=== PATIENT | male | born 1950 | race Caucasian/White ===

== ENCOUNTER → 2019-05-14 10:07 | Outpatient (CLI) | payer MEDICARE, MEDICAID, SELFPAY ==
--- NOTE | 2019-05-14 | DI.NM.S_ITS ---
PROCEDURE: NM BONE SCAN WHOLE BODY RADIOPHARMACEUTICAL: 20.1 mCi Tc-99m MDP IV. INDICATIONS: PROSTATE CANCER TECHNIQUE: Delayed whole-body scintigrams were obtained approximately 3-4 hours after intravenous injection of radiotracer. Anterior and posterior views were acquired from vertex to feet. Additional left and right oblique views of the pelvis and chest were obtained. COMPARISON: [facility], CR, XR TIBIA FIBULA RIGHT, 02/21/2018, 15:19. FINDINGS: Focal elevated isotope uptake is seen at the acromioclavicular joints bilaterally greater on the left than the right. 2 adjacent rib foci of elevated isotope uptake are seen anteriorly at the mid chest level fat the left, anteriorly on the fifth rib and slightly more posteriorly on the sixth rib. By appearance this likely is from trauma. Prior [id number] amputation at the right lower extremity. There is mild elevated isotope uptake within the distal femur, and this is considered most likely secondary to weightbearing in that area but please correlate clinically for whether there are any signs and symptoms of the distal femoral infection on the right. IMPRESSION: Arthritic change and mild focal trauma to the left anterior mid ribs. Mild elevated isotope uptake involving the femur in this patient who has undergone prior right [id number] amputation at the right femur. Please correlate for whether mild infection could be present but by appearance this is considered most likely reactive change to weightbearing. Dictated by: Yoseph Mccormick M.D. on 05/14/2019 at 15:06 Approved by: Yoseph Mccormick M.D. on 05/14/2019 at 15:15
== END ==
PROVIDERS: Visit Provider Physician Assistant
DX: C61 Malignant neoplasm of prostate (principal); S29.9XXA Unspecified injury of thorax, initial encounter; Z89.611 Acquired absence of right leg above knee
CPT/HCPCS: 78306; A9503

== ENCOUNTER → 2019-06-20 14:24 | Outpatient (CLI) | payer MEDICARE, SELFPAY ==
[2019-06-20 15:12] LABS: BUN Creatinine Ratio 27.1 (6-22); Blood Urea Nitrogen 19 mg/dL (9-20); Estimated Glomerular Filt Rate > 60.0 mL/min (>60)
== END ==
PROVIDERS: Visit Provider Urology
DX: C61 Malignant neoplasm of prostate (principal)
CPT/HCPCS: 36415; 82565; 84520

== ENCOUNTER → 2019-06-20 14:46 | Outpatient (CLI) | payer MEDICARE, MEDICAID, SELFPAY ==
--- NOTE | 2019-06-20 | DI.CT.S_ITS ---
PROCEDURE: CT CHEST ABD PEL W CON INDICATIONS: Malignant neoplasm of prostate TECHNIQUE: After the administration of oral and intravenous contrast, 5 mm thick sections acquired from the lung apices to the symphysis. 5 mm coronal and sagittal reformats were performed, with additional 7 mm coronal MIP reformats through the lungs. For radiation dose reduction, the following was used: automated exposure control, adjustment of mA and/or kV according to patient size. COMPARISON: [facility], CR, XR CHEST 1 VIEW, 02/21/2018, 15:19. [facility], CT, CT HEAD WITHOUT CONTRAST, 02/21/2018, 17:12. [facility], [place], NM BONE SCAN WHOLE BODY, 05/14/2019, 13:09. FINDINGS: Image quality: Excellent. CHEST: Lungs and pleura: Centrilobular emphysematous changes are seen. No acute airspace opacities. No pleural effusions or pneumothorax. Central and peripheral airways appear patent and normal in caliber. Mediastinum: Heart size is normal. No pericardial effusion. No mediastinal or hilar adenopathy by size criteria. Thoracic aorta and central pulmonary arteries are normal in size. Esophagus is normal in caliber. There is a large hiatal hernia. Chest wall: Enlarged bilateral axillary lymph nodes are seen, with the largest seen on the right measuring 2.4 x 1.6 cm. These lymph nodes demonstrate normal appearing, well preserved fatty maría. Thyroid gland demonstrates no significant CT abnormality. ABDOMEN: Solid organs: Liver is normal in size and enhancement. Gallbladder wall is not thickened there. Biliary system is non dilated. Pancreas enhances normally. Spleen is normal in size and enhancement. No adrenal nodules. Kidneys demonstrate normal size and enhancement, without hydronephrosis. Peritoneum and bowel: Bowel loops demonstrate normal wall thickness and caliber. No free fluid or air. Diverticulosis is seen, without findings of active diverticulitis. Nodes and vessels: No retroperitoneal or mesenteric adenopathy by size criteria. Aorta and inferior vena cava are normal in size. Atherosclerotic calcification is noted. Degenerative changes are seen throughout. There is accentuated lumbar lordosis. Grade 1/2 anterolisthesis is seen at the L5-S1 level, with associated bilateral pars defects. Miscellaneous: No ventral hernias. PELVIS: Genitourinary: The prostate is enlarged and heterogeneous, with a transverse measurement of 5.5 cm. The bladder demonstrates moderate to prominent generalized thickening. Miscellaneous: No inguinal hernias or adenopathy. Numerous bilateral iliac artery stents are seen, right more prominent than left. Bones: No suspicious bony lesions. No vertebral body compression fractures. Accentuated thoracic kyphosis is seen. S-shaped scoliotic curvature is seen. Accentuated lumbar lordosis is seen. Grade 1/anterolisthesis is seen at L5-S1, with associated pars defects at L5. IMPRESSION: Enlarged prostate. No findings of metastatic disease can be seen. No bony sclerotic lesions are detected. Accentuated lumbar lordosis is seen. There is grade 1/2 anterolisthesis at L5-S1, with associated bilateral L5 pars defects. Moderate to prominent urinary bladder wall thickening, which is consistent with chronic bladder outlet obstruction. Enlarged bilateral axillary lymph nodes are seen, which are more prominent on the right than on the left. These are unlikely related to metastatic disease and are most likely reactive in nature. Incidental note is made of: Centrilobular emphysematous changes Large hiatal hernia Diverticulosis is seen, without findings of active diverticulitis. Atherosclerotic calcification Iliac artery stents Dictated by: Ruddy Miranda M.D. on 06/20/2019 at 16:12 Approved by: Ruddy Miranda M.D. on 06/20/2019 at 16:19
== END ==
PROVIDERS: Visit Provider Urology
DX: C61 Malignant neoplasm of prostate (principal); R59.0 Localized enlarged lymph nodes; M43.17 Spondylolisthesis, lumbosacral region; K44.9 Diaphragmatic hernia without obstruction or gangrene; K57.90 Diverticulosis of intestine, part unspecified, without perforation or abscess without bleeding; I70.0 Atherosclerosis of aorta
CPT/HCPCS: 36415; 71260; 74177; 82565; 84520; Q9967

== ENCOUNTER 2020-12-26 01:57 | Emergency (ER) | payer MEDICARE, MEDICAID, SELFPAY ==
[2020-12-26] VITALS (17 sets, daily range): BP systolic 131–222; BP diastolic 72–113; PULSE 69–108; RESP 18; TEMP 36.8; O2SAT 90–98; BMI 26.1
--- NOTE | 2020-12-26 02:19 | DI.CT.S_ITS ---
PROCEDURE: CT HEAD/BRAIN WO CON INDICATIONS: acute gait instability/headache/severe hypertension TECHNIQUE: Noncontrast 4.5 mm thick angled axial sections acquired from the foramen magnum to the vertex, with coronal and sagittal reformats. For radiation dose reduction, the following was used: automated exposure control, adjustment of mA and/or kV according to patient size. COMPARISON: , CT, CT HEAD WITHOUT CONTRAST, 02/21/2018, 17:12. [facility], CR, XR CHEST 1V, 12/26/2020, 2:52. FINDINGS: Image quality: Excellent. CSF spaces: Basal cisterns are patent. No extra-axial fluid collections. The ventricles are symmetric in size and shape. Brain: No intracranial bleeds or masses. There is cerebral volume loss for age, with resultant ventricular and sulcal prominence. There are periventricular and deep white matter chronic small vessel ischemic changes. There is intracranial internal carotid artery atherosclerosis. Skull and face: Calvarium and visualized facial bones appear intact, without suspicious lesions. Sinuses: Visualized sinuses and mastoids are clear. IMPRESSION: Unremarkable intracranial study for age. No acute intracranial hemorrhage is seen. Note: No significant discrepancy from the preliminary report. Dictated by: Ruddy Miranda M.D. on 12/26/2020 at 8:45 Approved by: Ruddy Miranda M.D. on 12/26/2020 at 8:46
--- NOTE | 2020-12-26 02:19 | DI.RAD.S_ITS ---
PROCEDURE: XR CHEST 1V INDICATIONS: hypertensive crisis TECHNIQUE: One view of the chest was acquired. COMPARISON: [facility], CT, CT CHEST ABD PEL W CON, 06/20/2019, 15:47. [facility], CR, XR CHEST 1 VIEW, 02/21/2018, 15:19. FINDINGS: Surgical changes and devices: None. Lungs and pleura: Lungs are clear. No pleural effusions or pneumothorax. Mediastinum: There is a moderately sized hiatal hernia is seen, with an air-fluid level. The cardiac contours are within normal limits. The aorta demonstrates calcification and tortuosity. Bones and chest wall: No suspicious bony lesions. Overlying soft tissues appear unremarkable. IMPRESSION: No acute abnormality is seen. Hiatal hernia again seen. Dictated by: Ruddy Miranda M.D. on 12/26/2020 at 8:43 Approved by: Ruddy Miranda M.D. on 12/26/2020 at 8:45
[2020-12-26] MEDS: ONDANSETRON 4 MG/2 ML INJ IV (02:34)
[2020-12-26 02:47] LABS: Add Manual Diff / Slide Review NO; Basophils Absolute Auto 0 /uL (0-100); Basophils Percent Auto 0.4 % (0-2); Eosinophils Absolute Auto 100 /uL (0-450); Eosinophils Percent Auto 1.2 % (2-4); Hematocrit 40.5 % (41-53); Hemoglobin 12.9 g/dL (13.5-17.5); Lymphocytes Absolute Auto 2100 /uL (1100-4500); Mean Corpuscular HGB Conc 31.7 % (30-36); Mean Corpuscular Hemoglobin 24.7 PG (26-34); Mean Corpuscular Volume 77.9 fL (80-100); Monocytes Absolute Auto 1100 /uL (0-900); Neutrophils Absolute Auto 5900 /uL (1500-7000); Neutrophils Percent Auto 63.4 % (50-75); Platelet Count 115 X10^3/uL (150-400); Red Cell Distribution Width 17.1 % (11.6-14.8); White Blood Cell Count 9.3 X10^3/uL (4.5-11.0)
[2020-12-26] MEDS: NICARDIPINE 25 MG in SODIUM CHLORIDE 0.9% 240 ML 50 ML IV (03:03)
[2020-12-26 03:18] LABS: Bacteria Urine None Seen; RBC Urine None Seen (0-5/HPF); WBC Urine None Seen (0-5/HPF)
[2020-12-26 03:25] LABS: Alanine Aminotransferase 59 IU/L (<50); Albumin 4.2 g/dL (3.5-5.0); Albumin Globulin Ratio 1.2 (1.0-2.8); Alkaline Phosphatase 96 U/L (38-126); Aspartate Aminotransferase 62 IU/L (17-59); BUN Creatinine Ratio 34.3 (6-22); Bilirubin Total 0.4 mg/dL (0.2-1.3); Blood Urea Nitrogen 24 mg/dL (9-20); Calcium 9.4 mg/dL (8.4-10.2); Carbon Dioxide 30 mmol/L (22-32); Chloride 102 mmol/L (98-107); Estimated Glomerular Filt Rate > 60.0 mL/min (>60); Globulin 3.5 g/dL (1.7-4.1); Glucose 123 mg/dL (80-110); HEMOLYSIS < 15 (0-50); Magnesium 2.1 mg/dL (1.6-2.3); Potassium 4.4 mmol/L (3.4-5.1); Sodium 139 mmol/L (137-145); Total Protein 7.7 g/dL (6.3-8.2)
[2020-12-26 03:34] LABS: Appearance Urine UA CLEAR; Bilirubin Urine UA NEGATIVE (NEGATIVE); Color Urine UA YELLOW; Glucose Urine UA NEGATIVE (Negative); Ketones Urine UA NEGATIVE (NEGATIVE); Leukocyte Esterase Urine UA NEGATIVE (NEGATIVE); Nitrite Urine UA NEGATIVE (Negative); Occult Blood Urine UA NEGATIVE (Negative); Protein Urine UA NEGATIVE (Negative); Urobilinogen Urine UA 0.2 E.U./dL (0.2)
[2020-12-26 03:37] LABS: Troponin I < 0.012 ng/mL (0.01-0.034)
[2020-12-26 03:40] LABS: Culture Indicated Urine Cult Not Indicated
[2020-12-26 04:00] LABS: Thyroid Stimulating Hormone 1.81 uIU/mL (0.47-4.68)
[2020-12-26] MEDS: AMLODIPINE 5 MG TABLET 10 MG PO (04:06)
[2020-12-26 04:08] LABS: COVID19 - ADMIT (NP swab/PCR) Negative (Negative)
--- NOTE | 2020-12-26 05:08 | ED_ITS ---
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 He notes that he has been having more trouble standing up without feeling dizzy over the last 24 hours, headache and blurry vision and exertional dyspnea. He denies fever, cough, chest pain, palpitations, abdominal pain, dysuria. Related Data Previous Rx's Medication Instructions Recorded amlodipine 10 mg PO DAILY #30 tab 12/26/20 Allergies Allergy/AdvReac Type Severity Reaction Status Date / Time onion Allergy Verified 12/26/20 02:14 Review of Systems Review of Systems ROS Unobtainable: All systems reviewed & are unremarkable except as noted in HPI and below Patient History Medical History Hypertension Vasculopathy Social History Smoking Status: Current every day smoker Smoking Status: Current every day smoker alcohol intake frequency: 0-2 drinks per day Substance Use Type: does not use Exam Narrative Exam Narrative: General: no acute distress. Able to give a complete and coherent history. HEENT: Moist mucous membranes, normal sclera with reactive pupils, Neck: No JVD, supple Respiratory: Lungs are clear to auscultation, no wheezing no rales no rhonchi. Full and symmetrical air movement Cardiac: Regular rate and rhythm no murmurs no bruits Abdomen: Soft, nontender, good bowel tones, no flank pain Skin: Warm and dry, dry skin with plaques and chronic venous stasis changes on his left leg, 1+ edema Neurologic: Grossly neurologically intact with no obvious asymmetries or abnormalities Extremities: No trauma, mid thigh amputation right side, reasonable capillary refill but no palpable pulses on the left Psych: Cooperative, appropriate insight and affect Initial Vital Signs Initial Vital Signs: Vital Signs Temperature 98.3 F 12/26/20 02:02 Pulse Rate 95 H 12/26/20 02:02 Respiratory Rate 18 12/26/20 02:02 Blood Pressure 222/113 H 12/26/20 02:02 Pulse Oximetry 98 12/26/20 02:02 Course Orders Ordered: ED Orders 12/26/20 02:02 EKG-12 Lead Routine 12/26/20 02:19 CT head/brain wo con Stat XR chest 1V Stat 12/26/20 02:30 COVID19 - ADMIT (BUN ICER swab/PCR) Stat Complete Blood Count AUTO DIFF Stat 12/26/20 03:00 Urinalysis and Microscopic Stat 12/26/20 03:05 Comprehensive Metabolic Panel Stat Magnesium Stat Thyroid Stimulating Hormone Stat Troponin I Stat Nicardipine HCl 25 mg/ Sodium (Chloride) 250 mls @ 50 mls/hr IV TITRATE TI; Protocol Last Titration: 12/26/20 05:03 Dose: 2.5 mg/hr, 25 mls/hr Documented by: Admin: 12/26/20 03:03 Dose: 5 mg/hr, 50 mls/hr Documented by: MICHELLE Discontinued Medications Amlodipine Besylate (Amlodipine 5 Mg Tablet) 10 mg PO NOW ONE Stop: 12/26/20 03:59 Last Admin: 12/26/20 04:06 Dose: 10 mg Documented by: MICHELLE Ondansetron HCl (Ondansetron 4 Mg/2 Ml Inj) 4 mg IV NOW ONE Stop: 12/26/20 02:30 Last Admin: 12/26/20 02:34 Dose: 4 mg Documented by: MICHELLE Vital Signs Vital signs: Vital Signs - 8 hr 12/26/20 02:02 12/26/20 02:15 12/26/20 02:25 Temperature 98.3 F Pulse Rate 95 H 83 81 Respiratory Rate 18 Blood Pressure 222/113 H 219/109 H Pulse Oximetry 98 98 98 12/26/20 02:30 12/26/20 02:31 12/26/20 03:06 Temperature Pulse Rate 69 76 78 Respiratory Rate Blood Pressure 198/102 H Pulse Oximetry 98 98 97 12/26/20 03:28 12/26/20 03:30 12/26/20 03:45 Temperature Pulse Rate 82 84 86 Respiratory Rate Blood Pressure 154/88 H 155/83 H 165/88 H Pulse Oximetry 93 93 93 12/26/20 04:00 12/26/20 04:01 12/26/20 04:15 Temperature Pulse Rate 108 H 102 H 89 Respiratory Rate Blood Pressure 177/90 H 148/78 H Pulse Oximetry 94 95 91 12/26/20 04:30 12/26/20 04:45 12/26/20 05:00 Temperature Pulse Rate 90 87 88 Respiratory Rate Blood Pressure 153/84 H 131/72 146/78 H Pulse Oximetry 92 90 L 91 12/26/20 05:15 12/26/20 05:30 Temperature Pulse Rate 90 84 Respiratory Rate Blood Pressure 153/91 H 159/92 H Pulse Oximetry 94 93 Medical Decision Making Medical Records Medical records reviewed: Yes I reviewed the patient's medical records. Lab Data Lab results reviewed: Yes I reviewed the patient's lab results. Result diagrams: 12/26/20 02:30 12/26/20 03:05 Labs: Lab Results 12/26/20 12/26/20 12/26/20 Range/Units 02:30 02:30 03:00 WBC 9.3 (4.5-11.0) X10^3/uL RBC 5.20 (4.5-5.9) X10^6/uL Hgb 12.9 L (13.5-17.5) g/dL Hct 40.5 L (41-53) % MCV 77.9 L (80-100) fL MCH 24.7 L (26-34) PG MCHC 31.7 (30-36) % RDW 17.1 H (11.6-14.8) % Plt Count 115 L (150-400) X10^3/uL Neut % (Auto) 63.4 (50-75) % Lymph % (Auto) 23.0 L (25-40) % [place] % (Auto) 12.0 (3-14) % Eos % (Auto) 1.2 L (2-4) % Baso % (Auto) 0.4 (0-2) % Neut # (Auto) 5900 (3078-7763) /uL Lymph # (Auto) 2100 (6586-9139) /uL [place] # (Auto) 1100 H (0-900) /uL Eos # (Auto) 100 (0-450) /uL Baso # (Auto) 0 (0-100) /uL Sodium (137-145) mmol/L Potassium (3.4-5.1) mmol/L Chloride (98-107) mmol/L Carbon Dioxide (22-32) mmol/L BUN (9-20) mg/dL Creatinine (0.66-1.25) mg/dL Estimated GFR (>60) mL/min BUN/Creatinine Ratio (6-22) Glucose (80-110) mg/dL Calcium (8.4-10.2) mg/dL Magnesium (1.6-2.3) mg/dL Total Bilirubin (0.2-1.3) mg/dL AST (17-59) IU/L ALT (<50) IU/L Alkaline Phosphatase (38-126) U/L Troponin I (0.01-0.034) ng/mL Total Protein (6.3-8.2) g/dL Albumin (3.5-5.0) g/dL Globulin (1.7-4.1) g/dL Albumin/Globulin Ratio (1.0-2.8) TSH (0.47-4.68) uIU/mL Urine Color Yellow Urine Appearance Clear Urine pH 7.0 (4.5-8.0) Ur Specific [place] 1.020 (1.000-1.035) Urine Protein Negative (Negative) Urine Glucose (UA) Negative (Negative) g/dL Urine Ketones Negative (NEGATIVE) Urine Occult Blood Negative (Negative) Urine Nitrate Negative (Negative) Urine Bilirubin Negative (NEGATIVE) Urine Urobilinogen 0.2 (0.2) E.U./dL Ur Leukocyte Esterase Negative (NEGATIVE) Urine RBC None seen (0-5/HPF) Urine WBC None seen (0-5/HPF) Urine Bacteria None seen (None) Ur Culture Indicated? Cult not indicated SARS-CoV-2 (PCR) Negative (Negative) 12/26/20 12/26/20 12/26/20 Range/Units 03:05 03:05 03:05 WBC (4.5-11.0) X10^3/uL RBC (4.5-5.9) X10^6/uL Hgb (13.5-17.5) g/dL Hct (41-53) % MCV (80-100) fL MCH (26-34) PG MCHC (30-36) % RDW (11.6-14.8) % Plt Count (150-400) X10^3/uL Neut % (Auto) (50-75) % Lymph % (Auto) (25-40) % [place] % (Auto) (3-14) % Eos % (Auto) (2-4) % Baso % (Auto) (0-2) % Neut # (Auto) (3689-2647) /uL Lymph # (Auto) (8891-4871) /uL [place] # (Auto) (0-900) /uL Eos # (Auto) (0-450) /uL Baso # (Auto) (0-100) /uL Sodium 139 (137-145) mmol/L Potassium 4.4 (3.4-5.1) mmol/L Chloride 102 (98-107) mmol/L Carbon Dioxide 30 (22-32) mmol/L BUN 24 H (9-20) mg/dL Creatinine 0.70 (0.66-1.25) mg/dL Estimated GFR > 60.0 (>60) mL/min BUN/Creatinine Ratio 34.3 H (6-22) Glucose 123 H (80-110) mg/dL Calcium 9.4 (8.4-10.2) mg/dL Magnesium 2.1 (1.6-2.3) mg/dL Total Bilirubin 0.4 (0.2-1.3) mg/dL AST 62 H (17-59) IU/L ALT 59 H (<50) IU/L Alkaline Phosphatase 96 (38-126) U/L Troponin I < 0.012 (0.01-0.034) ng/mL Total Protein 7.7 (6.3-8.2) g/dL Albumin 4.2 (3.5-5.0) g/dL Globulin 3.5 (1.7-4.1) g/dL Albumin/Globulin Ratio 1.2 (1.0-2.8) TSH 1.81 (0.47-4.68) uIU/mL Urine Color Urine Appearance Urine pH (4.5-8.0) Ur Specific [place] (1.000-1.035) Urine Protein (Negative) Urine Glucose (UA) (Negative) g/dL Urine Ketones (NEGATIVE) Urine Occult Blood (Negative) Urine Nitrate (Negative) Urine Bilirubin (NEGATIVE) Urine Urobilinogen (0.2) E.U./dL Ur Leukocyte Esterase (NEGATIVE) Urine RBC (0-5/HPF) Urine WBC (0-5/HPF) Urine Bacteria (None) Ur Culture Indicated? SARS-CoV-2 (PCR) (Negative) Imaging Data Chest x-ray: Radiologist's Impression: Normal heart and lungs, large sliding hiatal hernia containing a fluid level Tyson Ponce MD CT scan - head: Radiologist's Impression: No acute intracranial process Tyson Ponce MD ECG Data Attestation: I personally reviewed and interpreted this ECG as follows: Interpretation: Sinus rhythm at a rate of 80 Normal axis, normal intervals No ischemic changes MDM Narrative Medical decision making narrative: 70-year-old gentleman presents with acute ne urologic symptoms as well as dyspnea associated with an initial blood pressure of 222/113. He has not taken his previous dose of 5 mg of amlodipine for almost a year. Workup does not suggest acute coronary syndrome and CT scan of the head does not have any acute findings. Blood pressure is initially brought down with nicardipine and his symptoms resolve by the time his pressure is down to the 160 systolic range. He is given 10 mg of oral amlodipine and his blood pressure continues to fall and he continues to feel better. He will need hypertensive crisis. Will continue to work on weaning down the nicardipine in the emergency department so that he can be admitted to floor care bed at [facility]. Critical Care Time Critical Care Time Critical Care Time: Yes Total Critical Care Time: 33 Attestation: Critical care time is separate from other billable procedures. This critical care time includes consultation with family and other consulting doctors, review of records, and interpretation of data from labs, EKGs and imaging as well as managements of IV medication management of acute blood pressure crisis with cardiac and neurologic symptoms Discharge Plan Departure Patient Disposition: Left Against Medical Advice Clinical Impression: Hypertensive crisis Instructions: DI for High Blood Pressure Activity Restrictions/Additional Instructions: I am glad you came in this evening and I am sorry that your choosing to leave ag ainst medical advice Your blood pressure was so high it was causing use stroke-like symptoms as well as heart attack like symptoms. Your initially treated with IV blood pressure medication and then given oral medication. Your symptoms did improve as her blood pressure came down. My recommendation was to stay in the hospital to make sure that your blood pressure was adequately controlled on oral medications and to ensure that you did not go on to have either a heart attack or a stroke You have stated that you do understand that 1 of the complications of leaving against medical advice is . You do need to continue on your blood pressure medication. I am going to restart you at 10 mg of amlodipine (I do understand that you are 5 mg a year ago). Please try using our health human resource advisor at [phone] to see if they are able to help connect you with a primary care physician in the area. If you have recurrent symptoms you do need to return to the emergency department Prescriptions: New amlodipine 10 mg tablet 10 mg PO DAILY Qty: 30 RF: 1 Stand Alone Forms: Against Medical Advice
--- NOTE | 2020-12-26 06:01 | PC.NURSE ---
Patient opted to leave AMA citing concern about his housing situation. RN encouraged patient to stay to manage his hypertension, but he was insistent that he needed to leave. Pt was provided with prescription for hypertensive medication and was discharged AMA.
== END 2020-12-26 06:05 | disposition left against medical advice (07) ==
PROVIDERS: Emergency Provider Emergency Medicine
DX: I16.9 Hypertensive crisis, unspecified (principal); Z89.611 Acquired absence of right leg above knee
CPT/HCPCS: 36415; 70450; 71045; 80053; 81001; 83735; 84443; 84484; 85025; 87635; 93005; 96365; 96366; 96375; 99285; 99291; 99292; J2405